=== PATIENT | male | born 1960 | race Caucasian/White ===

== ENCOUNTER 2021-02-23 07:38 | Outpatient (CLI) | payer BC | END 2021-02-23 07:39 | disposition home or self-care (01) | LOC: BICULT 07:38 | PROVIDERS: ATTEND Internal Medicine Gastroenterology | DX: K21.9 Gastro-esophageal reflux disease without esophagitis (principal); R13.10 Dysphagia, unspecified; K22.70 Barrett's esophagus without dysplasia; R14.0 Abdominal distension (gaseous); Z86.010 Personal history of colon polyps | CPT/HCPCS: 76700 ==

== ENCOUNTER 2023-04-20 09:31 | Outpatient (CLI) | payer BC | END 2023-04-20 09:32 | disposition home or self-care (01) | LOC: BICRAD 09:31 | PROVIDERS: ATTEND Internal Medicine | DX: R05.3 Chronic cough (principal) | CPT/HCPCS: 71046 ==

== ENCOUNTER 2024-12-07 03:19 | Emergency (ER) | payer MEDICARE, BC | END 2024-12-07 06:00 | disposition home or self-care (01) | LOC: ERS 03:19 | DX: R13.10 Dysphagia, unspecified (principal); Z87.891 Personal history of nicotine dependence | CPT/HCPCS: 70491 ==

== ENCOUNTER 2024-12-13 08:00 | Outpatient (CLI) | payer MEDICARE, BC | END 2024-12-13 13:51 | disposition home or self-care (01) | LOC: BICCT 08:00 | PROVIDERS: ATTEND Internal Medicine | DX: R05.3 Chronic cough (principal) | CPT/HCPCS: 71250 ==

== ENCOUNTER 2025-01-03 09:38 | Outpatient (CLI) | payer MEDICARE, BC | END 2025-01-03 09:39 | disposition home or self-care (01) | LOC: RAD 09:38 | PROVIDERS: ATTEND Internal Medicine Gastroenterology | DX: R13.10 Dysphagia, unspecified (principal); K21.9 Gastro-esophageal reflux disease without esophagitis | CPT/HCPCS: 74230 ==